=== PATIENT | male | born 1995 | race Caucasian/White ===

== ENCOUNTER 2025-01-21 04:26 | Inpatient (IN) ==
[2025-01-21 05:14] LABS: Appearance Urine Clear (Clear); Bilirubin Urine Negative (Negative); Blood Urine Negative (Negative); Color Urine Yellow; Glucose Urine UA Negative (Negative); Ketones Urine Negative (Negative); Leukocyte Esterase Urine Negative (Negative); Nitrite Urine Negative (Negative); Protein Urine Negative (Negative); Specific Gravity Urine 1.014 (1.000-1.030); Urobilinogen Urine Negative (Negative)
[2025-01-21] MEDS: NICOTINE POLACRILEX 2 MG GUM MT PRN (05:14)
--- NOTE | 2025-01-21 05:19 | Emergency Department Note ---
Impression & Plan Suicidal ideation, Alcohol intoxication, Homicidal ideation, Anxiety, Depression, Laceration of multiple sites ED Provider Note ED Provider Note NAME: GISEL BYRD AGE:29 SEX: Male : 1995 ARRIVES VIA: EMS INFORMANT: Patient ED PROVIDER(s): Maya Nj DO CHIEF COMPLAINT: Mental health evaluation HPI: This is a 29-year-old male who presents to Emergency Department for mental health evaluation. Patient wrote in by EMS after he had contacted the crisis line who then called EMS for him to come in for evaluation. Patient admits to history of anxiety and depression. He states he does take medications as prescribed by his PCP for this although they have been changing them recently, he also speaks with a therapist. He states recently he has felt he was getting out of control and had suicidal ideation a few weeks ago causing him to lock up the weapons he owns as he was concern for his own safety. He states tonight he had a couple beers and was discussing his increased anxiety with his father. He states his father gave him a dose of Ativan and he felt better and then had a few more beers. He states his father left and the patient began to feel unwell with both homicidal ideation briefly when his father was talking about his mother and then suicidal ideation. Patient did self-harm by cutting himself on the hand and bilateral anterior thighs with a knife as a way to stress relief. Patient states he has previously self-harm 2 over the last episode was about a year ago. No prior inpatient mental health treatment. PAST MEDICAL HISTORY:See Below PAST SURGICAL HISTORY:See Below FAMILY HISTORY:See Below SOCIAL HISTORY:See Below HOME MEDICATIONS:See Below ALLERGIES:See Below VITALS:See Below PHYSICAL EXAMINATION: GENERAL: alert, well appearing, well nourished, no distress, non-toxic EYE EXAM: normal conjunctiva, PERRL and EOM's grossly intact OROPHARYNX: no exudate, no erythema, lips, buccal mucosa, and tongue normal and mucous membranes are moist NECK: supple, no nuchal rigidity, no adenopathy, non-tender LUNGS: Clear to auscultation. Normal chest wall mechanics, no w/r/r HEART: no murmurs, S1 normal and S2 normal ABDOMEN: abdomen soft, non-tender, normo-active bowel sounds, no masses, no rebound or guarding. BACK: Back is symmetrical on inspection and there is no deformity, no midline tenderness, no CVA tenderness. SKIN: no rashes, petechiae, orbruising UPPER EXTREMITIES: upper extremities are grossly normal. FROM, nml pulses b/l. LOWER EXTREMITIES: No pitting edema. FROM, nml pulses b/l. NEURO EXAM: Normal sensorium, cranial nerves II-XII grossly intact, normal speech, no facial droop,nogross weakness of arms, no gross weakness of legs. Gross sensation intact. No ataxia. Vital Signs: reviewed and remarkable Differential Diagnosis: mood disorder, suicidal ideation, anxiety, depression, substance abuse, toxidrome, infection, hypoglycemia, electrolyte abnormalities, ICH as well as others were considered. MEDICAL DECISION MAKING: This is a 29-year-old male presents emergency department for mental health evaluation. Patient does admit to SI, HI, anxiety, and depression. Labs and urine collected and sent per protocol, reassuring. Patient seen and evaluated by case management and patient in agreement with plan for inpatient mental health treatment. Patient referred to [facility] and ultimately accepted for further treatment. Consultation(s): 0612: Patient seen and evaluated by yusuf Handley. He was in agreement with plan for inpatient mental health treatment. Patient referred to [facility] ER Treatment Provided: See below 0745: Still awaiting evaluation by [facility] Case signed out to Dr. Kaye pending their evaluation and hopeful acceptance. Diagnostics Interpreted By Me: -Laboratory studies: As stated above and show below. Triage Nursing Note Reviewed Prior/Outside Records Reviewed Past Med/Surg History Problem List (Updated 01/21/25 @ 16:35 by Roxane Loya MD) Eating disorder, unspecified Generalized anxiety disorder with panic attacks MDD (major depressive disorder), recurrent episode, severe Cfxwevq-Xoeeo-Jvohq disease Laceration of multiple sites (Acute) Depression (Acute) Anxiety (Acute) Homicidal ideation (Acute) Alcohol intoxication (Acute) Suicidal ideation (Acute) Social History Smoking Status: Current every day smoker Tobacco Type: E-cigarettes / Vaping Preferred Language: Kiswahili Communication Ability: Effective Mold Checker Required: No Beliefs That Will Affect Care: None Feels Safe at Home: Yes Gender Identity: Male Assistive Devices: Glasses Allergies Allergies Allergy/AdvReac Type Severity Reaction Status Date / Time No Known Allergies Allergy Unverified 01/21/25 09:27 Home Meds Home Medications Medication Instructions Recorded Confirmed aripiprazole 5 mg tablet 5 mg PO DAILY 01/21/25 01/21/25 escitalopram oxalate 10 mg tablet 10 mg PO DAILY 01/21/25 01/21/25 fluoxetine 10 mg capsule 10 mg PO DAILY 01/21/25 01/21/25 Results & Data (ED) Vital Signs Vital Signs - 24 hr 01/21/25 04:18 Temperature 36.4 C L Temperature Source Oral Pulse Rate 77 Respiratory Rate 17 Respiratory Effort / Characteristics Non-Labored Spontaneous Respiratory Depth Normal Respiratory Pattern Regular Blood Pressure 134/77 Blood Pressure Mean 96 Blood Pressure Position Sitting Pulse Oximetry 91 Oxygen Delivery Method Room Air Sepsis Recent Fever Within 48 Hours No Sepsis New/Unexplained Change in Mental Status No Sepsis Action Taken by Nursing No Action Required Laboratory Data 01/21/25 04:50 01/21/25 04:50 Lab Results 01/21/25 01/21/25 01/21/25 Range/Units 04:45 04:50 04:55 WBC 4.29 L (4.8-10.8) K/ul RBC 4.35 L (4.70-6.10) M/uL Hgb 13.3 L (14.0-18.0) g/dl Hct 38.8 L (42.0-52.0) % MCV 89.2 (80.0-100.0) fL MCH 30.6 (25.0-34.0) pg MCHC 34.3 (32.0-36.0) g/dL RDW Std Deviation 37.5 (36.4-46.3) fL RDW Coeff of [place] 11.6 (11.5-14.5) % Plt Count 179 (130-400) K/uL MPV 11.4 (9.4-12.4) fL Immature Gran % (Auto) 0.2 % Neut % (Auto) 65.1 % Lymph % (Auto) 28.2 % [place] % (Auto) 5.8 % Eos % (Auto) 0.2 % Baso % (Auto) 0.5 % Neut # (Auto) 2.79 (1.40-6.50) K/uL Lymph # (Auto) 1.21 (1.20-3.40) K/uL [place] # (Auto) 0.25 (0.11-0.59) K/uL Eos # (Auto) 0.01 (0.00-0.50) K/uL Baso # (Auto) 0.02 (0.00-0.20) K/uL Immature Gran # (Auto) 0.01 (0.01-0.20) K/uL Sodium 140 (136-145) mmol/L Potassium 3.9 (3.5-5.1) mmol/L Chloride 104 (98-107) mmol/L Carbon Dioxide 32 (21-32) mmol/L Anion Gap 4 (3-11) BUN 12 (6-23) mg/dl Creatinine 0.62 (0.6-1.4) mg/dl Est Cr Clr Drug Dosing 195.4 ml/min eGFR 134.35 BUN/Creatinine Ratio 19.4 (10-20) Glucose 102 H (70-99(Fasting)) mg/dl Calcium 9.1 (8.6-10.3) mg/dl Total Bilirubin 0.5 (0.2-1.0) mg/dl AST 54 H (13-39) U/L ALT 79 H (7-52) U/L Alkaline Phosphatase 53 (34-104) U/L Total Protein 6.9 (6.0-8.3) gm/dl Albumin 4.5 (3.4-5.0) gm/dl Globulin 2.4 L (2.5-4.0) gm/dl Albumin/Globulin Ratio 1.9 (0.9-2) TSH 1.579 (0.300-4.500) uIu/ml Urine Color Yellow Urine Appearance Clear (Clear) Urine pH 6.0 (4.5-7.5) Ur Specific [place] 1.014 (1.000-1.030) Urine Protein Negative (Negative) Urine Glucose (UA) Negative (Negative) Urine Ketones Negative (Negative) Urine Blood Negative (Negative) Urine Nitrite Negative (Negative) Urine Bilirubin Negative (Negative) Urine Urobilinogen Negative (Negative) Ur Leukocyte Esterase Negative (Negative) Salicylates < 3.0 L (3.0-30) mg/dl Urine Opiates Screen Neg (Neg) Ur Methadone, Qual Neg (Neg) Urine Fentanyl Screen Neg (Neg) Acetaminophen < 3 L (10-30) ug/ml Urine Barbiturates Neg (Neg) Ur Phencyclidine (PCP) Neg (Neg) U Amphetamin/Meth Scrn Neg (Neg) MDMA (Ecstasy) Screen Neg (Neg) U Benzodiazepines Scrn Neg (Neg) Ur Cocaine Metabolite Neg (Neg) U Marijuana (THC) Screen Pos H (Neg) Ethyl Alcohol mg/dL 100.7 H (<10.0) mg/dl SARS-CoV-2, RNA, NAAT NEGATIVE (NEGATIVE) Administered Medications Aripiprazole (Aripiprazole 5 Mg Tab) 5 mg PO DAILY [facility] Stop: 02/20/25 11:59 Last Admin: 01/21/25 11:49 Dose: 5 mg Documented By: ROB Diclofenac Sodium (Diclofenac Sod 1% Gel 100 Gm Tube) 4 gm EXT BID [facility]; Protocol Stop: 02/20/25 11:44 Last Admin: 01/21/25 21:11 Dose: 4 gm Documented By: Admin: 01/21/25 12:45 Dose: 4 gm Documented By: ROB Escitalopram Oxalate (Escitalopram Oxalate 20 Mg Tab) 20 mg PO DAILY [facility] Stop: 02/20/25 11:59 Last Admin: 01/21/25 11:49 Dose: 20 mg Documented By: ROB Gabapentin (Gabapentin 100 Mg Cap) 100 mg PO TID [facility] Stop: 02/20/25 13:59 Last Admin: 01/21/25 21:10 Dose: 100 mg Documented By: Admin: 01/21/25 13:34 Dose: 100 mg Documented By: ROB Hydroxyzine HCl (Hydroxyzine Hcl 25 Mg Tab) 50 mg PO HSZ PRN PRN Reason: Insomnia Stop: 02/20/25 09:02 Last Admin: 01/21/25 22:32 Dose: 50 mg Documented By: RB Multivitamins/Minerals (Cerovite Adv Formula Tab) 1 tab PO QAM [facility] Stop: 02/20/25 11:44 Last Admin: 01/21/25 12:43 Dose: 1 tab Documented By: ROB Nicotine (Nicotine 21 Mg/24 Hr Tdsy) 1 patch TD QAM [facility] Stop: 02/20/25 09:14 Last Admin: 01/21/25 11:01 Dose: 1 patch Documented By: ROB Discontinued Medications Aripiprazole (Aripiprazole 5 Mg Tab) 5 mg PO DAILY [facility] Stop: 02/20/25 11:14 Last Admin: 01/21/25 15:37 Dose: Not Given Documented By: RB Lidocaine (Lidocaine 5% 1 Patch) 1 patch TD NOW STA Stop: 01/21/25 11:41 Last Admin: 01/21/25 12:44 Dose: 1 patch Documented By: VDS Nicotine Polacrilex (Nicotine Polacrilex 2 Mg Gum) 1 piece MT Q2H PRN PRN Reason: Agitation Stop: 02/20/25 05:08 Last Admin: 01/21/25 05:14 Dose: 1 piece Documented By: KMS Discharge Plan Visit Data Chief Complaint: Mental Health Evaluation Stated Complaint: [facility] ED Provider: Maya Nj Discharge Problem: Suicidal ideation, Alcohol intoxication, Homicidal ideation, Anxiety, Depression, Laceration of multiple sites Patient Disposition: Admitted As Inpatient Discharge Instructions Interventions: ED Discharge Assessment Last Done: 01/21/25 08:49
[2025-01-21 05:30] LABS: Albumin Globulin Ratio 1.9 (0.9-2); Albumin Level 4.5 gm/dl (3.4-5.0); BUN Creatinine Ratio 19.4 (10-20); Bilirubin,Total 0.5 mg/dl (0.2-1.0); Calcium 9.1 mg/dl (8.6-10.3); Creatinine Clr Calc Pharmacy 195.4 ml/min; Globulin 2.4 gm/dl (2.5-4.0); Potassium 3.9 mmol/L (3.5-5.1); Total Protein 6.9 gm/dl (6.0-8.3)
[2025-01-21 05:42] LABS: Acetaminophen < 3 ug/ml (10-30); Salicylate < 3.0 mg/dl (3.0-30)
[2025-01-21 05:42] LABS: Amphetamines+Metham, Urine Neg (Neg); Barbiturates, Urine Neg (Neg); Benzodiazepine, Urine Neg (Neg); Cocaine, Urine Neg (Neg); Fentanyl, Urine Neg (Neg); MDMA (Ecstacy), Urine Neg (Neg); Marijuana, Urine Pos (Neg); Methadone, Urine Neg (Neg); Opiate, Urine Neg (Neg); Phencyclidine, Urine Neg (Neg)
[2025-01-21 05:44] LABS: Thyroid Stimulating Hormone 1.579 uIu/ml (0.300-4.500)
[2025-01-21 06:18] LABS: Basophils # (auto) 0.02 K/uL (0.00-0.20); Basophils % (auto) 0.5 %; Eosinophils # (auto) 0.01 K/uL (0.00-0.50); Eosinophils % (auto) 0.2 %; Hematocrit (blood only) 38.8 % (42.0-52.0); Hemoglobin 13.3 g/dl (14.0-18.0); Immature Granulocytes # (auto) 0.01 K/uL (0.01-0.20); Immature Granulocytes % (auto) 0.2 %; Lymphocytes # (auto) 1.21 K/uL (1.20-3.40); Lymphocytes % (auto) 28.2 %; Mean Corpuscular Hemoglobin 30.6 pg (25.0-34.0); Mean Corpuscular Hgb Conc 34.3 g/dL (32.0-36.0); Mean Corpuscular Volume 89.2 fL (80.0-100.0); Mean Platelet Volume 11.4 fL (9.4-12.4); Monocytes # (auto) 0.25 K/uL (0.11-0.59); Monocytes % (auto) 5.8 %; Neutrophils # (auto) 2.79 K/uL (1.40-6.50); Neutrophils % (auto) 65.1 %; Platelet Count 179 K/uL (130-400); RDW Coefficient of Variation 11.6 % (11.5-14.5); RDW Standard Deviation 37.5 fL (36.4-46.3); Red Blood Count 4.35 M/uL (4.70-6.10); White Blood Count 4.29 K/ul (4.8-10.8)
--- NOTE | 2025-01-21 07:42 | Emergency Department Note ---
ED Visit Note The patient was taken in signout from Dr. Nj at the change of shift. Please see that note for details. The patient was pending bedsearch for inpatient psychiatric treatment. In brief the patient is a 29-year-old gentleman with a pmhx of anxiety/depression who presented to the Emergency Department with SI and HI in setting of having intermittent suicidal ideation over the past couple weeks. Patient was medically cleared. Patient did agree with plan for voluntary inpatient treatment at this time. Patient was accepted to [facility] .
[2025-01-21] MEDS ORDERED: NICOTINE POLACRILEX 2 MG GUM MT PRN (09:01)
[2025-01-21] MEDS ORDERED: hydrOXYzine HCl 25 MG TAB PO PRN (09:03)
[2025-01-21] MEDS ORDERED: ALUMINUM/MAGNESIUM SUSP 30 ML UDC PO PRN (09:03)
[2025-01-21] MEDS ORDERED: MAGNESIUM HYDROXIDE SUSP 30 ML UDC PO PRN (09:03)
[2025-01-21] MEDS ORDERED: ACETAMINOPHEN 325 MG TAB PO PRN (09:03)
[2025-01-21] MEDS ORDERED: BISMUTH SUBSALICYLATE 262 MG CHEW PO PRN (09:03)
[2025-01-21] MEDS ORDERED: SODIUM CHLORIDE 0.65% NA SOLN 45 ML (OCEAN) PRN (09:03)
[2025-01-21] MEDS: NICOTINE 21 MG/24 HR TDSY TD SCH (11:01)
--- NOTE | 2025-01-21 11:28 | History & Physical ---
Date of Service January 21, 2025 Impression / Recommendations Patricia BYRD is a 29-year-old man who currently lives in [place] alone, has a history of anxiety, depression, Ymputsq-Rmwvz-Bpozr, and was admitted on 01/21/25 08:32 on a 201 voluntary commitment for SI and HI. Diagnostically consistent with major depressive disorder with suicidal ideation, generalized anxiety disorder with panic attacks, Gtwyabj-Dbtmh-Vkxpc disease, and unspecified eating disorder, self-harm behaviors and possible borderline personality disorder. Nutritional deficiencies on the differential as these can contribute to anxiety symptoms, particularly given long-term vegan diet and history of binging, no evidence for thiamine deficiency or Wernicke's encephalopathy. Discussed medication treatment options in detail. Discussed risks, benefits and alternatives. He is currently taking Lexapro which he is agreeable to increasing, continuing Abilify, and using Vistaril as needed for anxiety. Starting gabapentin for dual purpose of anxiety management and neuropathic pain. Reviewed side effects including but not limited to: GI effects and headache with Lexapro; movement (TD, NMS), cardiac (QTc prolongation), and metabolic (stroke, insulin resistance) and necessity for fasting lipid and glucose labwork and AIMS done with score of 0 with abilify; sedation with Vistaril; dizziness and somnolence with gabapentin. Will require monitoring of cholesterol, glucose, vitamin levels per ordered labs. Safety plan includes inpatient psychiatric hospitalization for stabilization and medication adjustment. Firearms to be secured with patient's mother. Symptom questionnaires to be administered for baseline assessment. Additional interventions include lidocaine patch for back pain management, stress reduction techniques, and bagel maker consultation for vegan diet management given concurrent concern for eating disorder role and restriction. MNPR for now given recent statements of HI Overall I spent a total of 75 minutes for this admission including review of chart records, review of labwork, direct evaluation of the patient, counseling the patient, ordering medication, risk assessment, discussion with the psychiatric liason RN and documentation in the electronic health record. (1) Suicidal ideation: (2) MDD (major depressive disorder), recurrent episode, severe: (3) Generalized anxiety disorder with panic attacks: (4) Laceration of multiple sites: (5) Homicidal ideation: (6) Udqwznx-Gexdb-Dodjp disease: (7) Alcohol intoxication: (8) Eating disorder, unspecified: Plan 01/21/2025: The patient was admitted to the [facility] ([facility] inpatient mental health unit) on q15 min checks (behavioral with suicide precautions) for safety. The patient will participate in group, recreational, and milieu therapies and will be offered additional individual and family sessions as clinically appropriate. -continue abilify 5mg HS -increase lexapro to 20mg daily -fasting lipid panel, HBA1c, Vit D and Vit B12 for tomorrow AM -start gabapentin 100mg TID -start multivitamin -bagel maker consult -lidocaine patch -Voltaren gel -Advil -PHQ-9, ALEJANDRO-7, Desmond BPD, MARKEL questionnaire Inventory Assets Strengths: supportive relationships, willing to get treatment Needs: safety and stabilization, medication adjustment, additional coping skills, increased outpatient services Suicide Risk Level Suicide Risk Level: High-Moderate (q15 min suicide checks) (worsened depression, anxiety with panic attacks and SI prior to admission but feels safe in the hospital and feels able to ask for support) Risk Factors Assessment Male: Yes : Yes Do You Have Access To A Gun?: Yes Health Problems: Yes Mental Health Diagnoses: Yes Substance Use Disorders: No Previous Attempt: No Family History of Suicide: No Previous Psychiatric Hospitalization: No Hopelessness: Yes Protective Factors Assessment Employed: No Stable Relationships: Yes Supportive Family: Yes (mother) Good Rapport with Provider: Yes Psychiatric History Identifying Data GISEL BYRD is a 29-year-old man who currently lives in [facility], has a history of anxiety, depression, Unpkzrs-Deemu-Otwht, and was admitted on 01/21/25 08:32 on a 201 voluntary commitment for SI and HI. Chief Complaint "Almost everything gives me a panic attack lately". History of Present Illness He presents for psychiatric admission for worsening depression, constant panic attacks and SI with possible plans of shooting himself which has been worsening over the last month. He describes that his symptoms seemed to worsen after watching a livestream about something discussing the possibility of a future nuclear war regarding [place] conflict and seeing information about wars all over the world. He notes since then it's felt like "the world's impending doom". He reports a significant decline in his mental health over the past month. About a week ago he called the national crisis line for increased thoughts of suicide and decided to lock up his guns "to keep myself from acting on it". He describes feeling "really worked up" last evening and was self-harming by cutting his hand and legs with a knife and "starting to think about picking the lock" on his gun cabinet. He endorses depressive symptoms including anhedonia (typically enjoys collecting transformers), decreased motivation, self-guilt, helplessness, hopelessness, decreased energy, increased appetite, and increased sleep with daytime naps. SI has been occurring throughout his life but have worsened recently. He also endorses symptoms of anxiety including generalized worries, shakiness, easily overwhelmed and panic attacks with heart racing and "just scared". He reports at least one panic attack per day which seems to last for a few minutes to 20-30minutes. He notes "I just can't seem to get stuff out of my head sometimes". Yesterday evening he developed homicidal thoughts towards his dad. He notes he and his dad were drinking and "drinking makes my dad mean" and his dad was accusing him of trying to take advantage of others and then was threatening his mom. He denies any HI currently noting "I regret saying it and I really believe I would never do that". However, he does feel he would defend his mother if his father ever tried to be aggressive toward her. Endorses chronic pain related to Mzjgkam-Mzuxw-Wevzv disease, particularly in feet and ankles, with recent onset of back pain. Reports difficulty controlling tremors in hands and arms, which has worsened lately. Endorses visual hallucinations, including seeing things in peripheral vision and recent incident of seeing someone waving from bed now and then but this is rare, not associated with going to sleep or waking up. He is currently prescribed psychiatric medications of abilify 5mg HS (started last week due to difficulty sleeping and SI), Lexapro 10mg daily (on this for two weeks, started for anxiety/depression, no benefits so far, notices side effect of "this weird pressure in my head") and uses Vistaril prn for anxiety which sometimes helps. Psychiatric ROS notable for no current nor history of symptoms of trista, psychosis (except brief visual hallucinations rarely as described above), PTSD, nor OCD. History of self-harm via cutting and history of eating disorder of inducing vomiting a few ago to try to lose weight. Has also been Vegan for a few years to try to lose weight. Past Psychiatric History Current Psychiatric Diagnosis: Depression, Anxiety Outpatient Services: just started therapy [facility] had one session so far Previous Psych Admissions: none Do You Have Access To A Gun?: Yes History of Previous Suicide Attempt: No Past Medication Trials: -fluoxetine-recently stopped (was on this for at least 1-2 years, for awhile it seemed to help but then it wasn't working, tried dose increase but then side effects of headaches, nausea, blurry vision) Past Head Trauma/Neuro History History of Concussion/Seizure: No Allergies Allergy/AdvReac Type Severity Reaction Status Date / Time No Known Allergies Allergy Unverified 01/21/25 09:27 Home Medications Medication Instructions Recorded Confirmed Type aripiprazole 5 mg tablet 5 mg PO DAILY 01/21/25 01/21/25 History escitalopram oxalate 10 mg tablet 10 mg PO DAILY 01/21/25 01/21/25 History fluoxetine 10 mg capsule 10 mg PO DAILY 01/21/25 01/21/25 History Family History Family History of: Depression, Anxiety and Alcoholism/Drug Abuse Family Mental Health History Comment: Mother and father with alcoholism, undiagnosed depression/anxiety Alcohol History Hx of Alcohol Use Over the Past 12 Months: Yes (1-2 times per month) AUDIT Total Score: 4 He reports in the past he used to drink a lot more but now he only drinks socially usually 2-3 beer once or twice a month Smoking Use Have You Smoked or Used Tobacco Products in the Last 30 Days: Yes tobacco type: e-cigarettes Smoking Status: Current every day smoker Substance History Hx of Prescription Med Misuse Over the Past 12 Months: Yes (Took 5mg Ativan not prescribed to him) Hx of Over the Counter Med Misuse Over the Past 12 Months: No Hx of Inhalent Misuse Over the Past 12 Months: No Hx of Organic Substance Use Over the Past 12 Months: Yes (Marijuana frequently, last used yesterday) Hx of Illegal Substances/Street Drug Use Over Past 12 Months: No Problems as a Result of Past Substance Use: None Identified Uses cannabis, had been daily but recently he's been trying "not to do it because it freaks me out, have a panic attack or something when I do it". Personal History Living Arrangements: Apartment Childhood: Parents are . He has a younger sister. Highest Grade Completed: High School Graduate Employment Status: Disabled Marital Status: Single Number Of Children: n/a Beliefs That Will Affect Care: None Current Legal Problems: No Hx Legal Problems: No Hx Traumatic Life Events: No Patient History Social History Smoking Status: Current every day smoker Tobacco Type: E-cigarettes / Vaping Preferred Language: French Communication Ability: Effective Law Office Manager Required: No Beliefs That Will Affect Care: None Feels Safe at Home: Yes Gender Identity: Male Assistive Devices: Glasses Review of Systems Review of Systems: All systems reviewed & are unremarkable except as noted in HPI & below (back pain and foot pain) Physical Exam Psychiatric: Orientation: alert and oriented x 3 Apperance: appropriately dressed and appropriately groomed Eye Contact: good eye contact Motor Behavior: no abnormal motor movements Speech: normal rate/rhythm/volume of speech Affect: + depressed affect and + anxious affect Mood: + depressed mood and + anxious mood Thought Process: goal directed thought process Thought Content: reality based without delusions Suicidal Thoughts: denies suicidal intent; + reports suicidal thoughts and + reports suicidal plan (none for hospital, outside to use gun) Homicidal Thoughts: denies homicidal thoughts (but present toward his father last evening) Hallucinations: no auditory hallucinations and no visual hallucinations Cognition: recent memory grossly intact, remote memory grossly intact, attention grossly intact and language grossly intact Estimated Intelligence: consistent with education level Insight: + fair insight Judgment: + fair judgement Vital Signs (Past 24 Hours): Last Vital Signs Temp 36.7 C 01/21/25 10:04 Pulse 73 01/21/25 10:04 Resp 16 01/21/25 10:04 BP 127/76 01/21/25 10:04 Pulse Ox 99 01/21/25 10:04 O2 Del Method Room Air 01/21/25 10:04 Exam Statement: A physical exam was performed in the ED by Dr. Nj for the purposes of medical clearance. I accept that physical as correct and adequate for the purposes of the inpatient physical exam. Results & Data ([facility] [place]) Laboratory Results Laboratory Results - last 24 hr 01/21/25 01/21/25 01/21/25 04:45 04:50 04:55 WBC 4.29 L RBC 4.35 L Hgb 13.3 L Hct 38.8 L MCV 89.2 MCH 30.6 MCHC 34.3 RDW Std Deviation 37.5 RDW Coeff of Davonte 11.6 Plt Count 179 MPV 11.4 Immature Gran % (Auto) 0.2 Neut % (Auto) 65.1 Lymph % (Auto) 28.2 Mcculloch % (Auto) 5.8 Eos % (Auto) 0.2 Baso % (Auto) 0.5 Neut # (Auto) 2.79 Lymph # (Auto) 1.21 Mcculloch # (Auto) 0.25 Eos # (Auto) 0.01 Baso # (Auto) 0.02 Immature Gran # (Auto) 0.01 Sodium 140 Potassium 3.9 Chloride 104 Carbon Dioxide 32 Anion Gap 4 BUN 12 Creatinine 0.62 Est Cr Clr Drug Dosing 195.4 eGFR 134.35 BUN/Creatinine Ratio 19.4 Glucose 102 H Calcium 9.1 Total Bilirubin 0.5 AST 54 H ALT 79 H Alkaline Phosphatase 53 Total Protein 6.9 Albumin 4.5 Globulin 2.4 L Albumin/Globulin Ratio 1.9 TSH 1.579 Urine Color Yellow Urine Appearance Clear Urine pH 6.0 Ur Specific [place] 1.014 Urine Protein Negative Urine Glucose (UA) Negative Urine Ketones Negative Urine Blood Negative Urine Nitrite Negative Urine Bilirubin Negative Urine Urobilinogen Negative Ur Leukocyte Esterase Negative Salicylates < 3.0 L Urine Opiates Screen Neg Ur Methadone, Qual Neg Urine Fentanyl Screen Neg Acetaminophen < 3 L Urine Barbiturates Neg Ur Phencyclidine (PCP) Neg U Amphetamin/Meth Scrn Neg MDMA (Ecstasy) Screen Neg U Benzodiazepines Scrn Neg Ur Cocaine Metabolite Neg U Marijuana (THC) Screen Pos H U Marijuana THC Carboxy Pending Drug Screen Comment Pending Ethyl Alcohol mg/dL 100.7 H SARS-CoV-2, RNA, NAAT NEGATIVE Current Inpatient Medications Current Inpatient Medications: Current Inpatient Medications Acetaminophen (Acetaminophen 325 Mg Tab) 650 mg PO Q4H PRN PRN Reason: Headache or Minor Fever Stop: 02/20/25 09:02 Al Hydrox/Mg Hydrox/Simethicone (Aluminum/Magnesium Susp 30 Ml Udc) 30 ml PO Q4H PRN PRN Reason: GI Upset Stop: 02/20/25 09:02 Bismuth Subsalicylate (Bismuth Subsalicylate 262 Mg Chew) 2 tab PO Q30M PRN PRN Reason: Loose Stool/Diarrhea Stop: 02/20/25 09:02 Hydroxyzine HCl (Hydroxyzine Hcl 25 Mg Tab) 50 mg PO HSZ PRN PRN Reason: Insomnia Stop: 02/20/25 09:02 Hydroxyzine HCl (Hydroxyzine Hcl 25 Mg Tab) 25 mg PO Q4H PRN PRN Reason: Anxiety Stop: 02/20/25 09:02 Magnesium Hydroxide (Magnesium Hydroxide Susp 30 Ml Udc) 30 ml PO DAILY PRN PRN Reason: Constipation Stop: 02/20/25 09:02 Miscellaneous (Remove Nicoderm Patch) 1 each N/A DAILY@0859 [facility] Stop: 02/21/25 08:58 Nicotine (Nicotine 21 Mg/24 Hr Tdsy) 1 patch TD QAM [facility] Stop: 02/20/25 09:14 Last Admin: 01/21/25 11:01 Dose: 1 patch Nicotine Polacrilex (Nicotine Polacrilex 2 Mg Gum) 1 piece MT PRN PRN PRN Reason: Nicotine Withdrawal Symptoms Stop: 02/20/25 09:00 Sodium Chloride (Sodium Chloride 0.65% Na Soln 45 Ml ([place])) 1 - 2 sprays NA PRN PRN PRN Reason: Nasal Dryness/Congestion Stop: 02/20/25 09:02
[2025-01-21] MEDS ORDERED: IBUPROFEN 200 MG TAB PO PRN (11:40)
[2025-01-21] MEDS: ARIPiprazole 5 MG TAB PO SCH ×2 (11:49→15:37)
[2025-01-21] MEDS: ESCITALOPRAM OXALATE 20 MG TAB PO SCH (11:49)
[2025-01-21] MEDS: CEROVITE ADV FORMULA TAB PO SCH (12:43)
[2025-01-21] MEDS: LIDOCAINE 5% 1 PATCH TD STA (12:44)
[2025-01-21] MEDS: DICLOFENAC SOD 1% GEL 100 GM TUBE EXT SCH (12:45)
[2025-01-21] MEDS: GABAPENTIN 100 MG CAP PO SCH (13:34)
[2025-01-21] MEDS: hydrOXYzine HCl 25 MG TAB PO PRN (22:32)
[2025-01-22 08:48] LABS: Chol HDL Ratio 2.2 (0-5)
--- NOTE | 2025-01-22 09:00 | Psychiatric Progress Note ---
Date of Service January 22, 2025 Impression / Recommendations Patricia BYRD is a 29-year-old man who currently lives in [place] alone, has a history of anxiety, depression, Irwuvxv-Fhgmu-Nfbkd, and was admitted on 01/21/25 08:32 on a 201 voluntary commitment for SI and HI. Diagnostically consistent with major depressive disorder with suicidal ideation, generalized anxiety disorder with panic attacks, Btscirn-Uncui-Npsoh disease, and unspecified eating disorder, self-harm behaviors and possible borderline personality disorder. Nutritional deficiencies on the differential as these can contribute to anxiety symptoms, particularly given long-term vegan diet and history of binging, no evidence for thiamine deficiency or Wernicke's encephalopathy. A: : Mood improving slightly today with lessening of suicidal ideation. Tolerating medication changes so far, we will continue to titrate gabapentin to target pain symptoms and anxiety. Labwork reviewed and stable for ongoing use of Abilify, normal HbA1c and fasting lipid panel. Added vitamin D supplementation due to low vitamin D. Symptom questionnaire is reviewed and notable for ALEJANDRO-7 score of 20, PHQ-9 score of 22, positive Richey borderline personality disorder screening and a score of 4. Discussed with him that one of the best treatments for symptoms associated with borderline personality disorder is structured therapy specifically DBT. No longer having any HI, will discontinue MNPR. Overall, I spent a total of 35 minutes on this case including meeting with the patient, reviewing the chart, nursing report, multidisciplinary team meeting, orders, and documentation. (1) Suicidal ideation: (2) MDD (major depressive disorder), recurrent episode, severe: (3) Generalized anxiety disorder with panic attacks: (4) Laceration of multiple sites: (5) Homicidal ideation: (6) Pewxzle-Mprzg-Lclsb disease: (7) Alcohol intoxication: (8) Eating disorder, unspecified: Plan 01/22/2025: -Increase gabapentin to 300mg TID 01/21/2025: The patient was admitted to the [facility] ([facility] mental health unit) on q15 min checks (behavioral with suicide precautions) for safety. The patient will participate in group, recreational, and milieu therapies and will be offered additional individual and family sessions as clinically appropriate. -continue abilify 5mg HS -increase lexapro to 20mg daily -fasting lipid panel, HBA1c, Vit D and Vit B12 for tomorrow AM -start gabapentin 100mg TID -start multivitamin -cra consult -lidocaine patch -Voltaren gel -Advil -PHQ-9, ALEJANDRO-7, Desmond BPD, MARKEL questionnaire Inventory Assets Strengths: supportive relationships, willing to get treatment Needs: safety and stabilization, medication adjustment, additional coping skills, increased outpatient services Suicide Risk Level Suicide Risk Level: Moderate (q15 min suicide checks) (worsened depression, anxiety with panic attacks and SI prior to admission but mood improving, feels safe in the hospital and feels able to ask for support) Risk Factors Assessment Male: Yes : Yes Do You Have Access To A Gun?: Yes Health Problems: Yes Mental Health Diagnoses: Yes Substance Use Disorders: No Previous Attempt: No Family History of Suicide: No Previous Psychiatric Hospitalization: No Hopelessness: Yes Protective Factors Assessment Employed: No Stable Relationships: Yes Supportive Family: Yes (mother) Good Rapport with Provider: Yes Interval History Identifying Information GISEL BYRD is a 29-year-old man who currently lives in [place] alone, has a history of anxiety, depression, Dxmhvyx-Zqtby-Uuuxn, and was admitted on 01/21/25 08:32 on a 201 voluntary commitment for SI and HI. Chief Complaint "better less nervous". Review of Systems Sleep Information Total Hours of Sleep: 6.5 Meal Information Percent Meal Consumed - Breakfast: 100 Percent Meal Consumed - Lunch: 75 Percent Meal Consumed - Dinner: 75 Subjective Subjective Patient was seen & assessed and interval progress reviewed with treatment team. Attending some groups. Had a good visit with his uncle. Showered last evening. Rated his mood "anxious" last evening. Today he reports his mood is "better less nervous". He found that the Voltaren cream helped some with his ankle and foot pain. He is also finding the lidocaine patch helpful for his low back pain. He denies any thoughts of suicide today. He continues to have significant anxiety has not noticed any side effects but also not much benefit from gabapentin he is interested in increasing the dose. Reviewed his lab work and symptom questionnaires. Physical Exam Psychiatric Orientation: alert and oriented x 3 Apperance: appropriately dressed and appropriately groomed Eye Contact: good eye contact Motor Behavior: no abnormal motor movements Speech: normal rate/rhythm/volume of speech Affect: + depressed affect and + anxious affect Mood: + depressed mood and + anxious mood Thought Process: goal directed thought process Thought Content: reality based without delusions Suicidal Thoughts: denies suicidal intent; + reports suicidal thoughts (lessening today) and + reports suicidal plan (none for hospital, outside to use gun) Homicidal Thoughts: denies homicidal thoughts Hallucinations: no auditory hallucinations and no visual hallucinations Cognition: recent memory grossly intact, remote memory grossly intact, attention grossly intact and language grossly intact Estimated Intelligence: consistent with education level Insight: + fair insight Judgment: + fair judgement Vital Signs (Past 24 Hours) Last Vital Signs Temp 36.6 C 01/22/25 06:26 Pulse 73 01/22/25 06:27 Resp 16 01/22/25 06:26 BP 112/70 01/22/25 06:27 Pulse Ox 99 01/21/25 10:04 O2 Del Method Room Air 01/21/25 10:04 Results & Data ([facility]) Laboratory Results Laboratory Results - last 24 hr 01/22/25 08:11 Estimat Average Glucose Pending Hemoglobin A1c Pending Triglycerides 83 Cholesterol 125 LDL Cholesterol, Calc 50 VLDL Cholesterol, Calc 17 HDL Cholesterol 58 Cholesterol/HDL Ratio 2.2 Vitamin B12 Pending 25-OH Vitamin D Total Pending Current Inpatient Medications Current Inpatient Medications: Current Inpatient Medications Acetaminophen (Acetaminophen 325 Mg Tab) 650 mg PO Q4H PRN PRN Reason: Headache or Minor Fever Stop: 02/20/25 09:02 Al Hydrox/Mg Hydrox/Simethicone (Aluminum/Magnesium Susp 30 Ml Udc) 30 ml PO Q4 H PRN PRN Reason: GI Upset Stop: 02/20/25 09:02 Aripiprazole (Aripiprazole 5 Mg Tab) 5 mg PO DAILY [facility] Stop: 02/20/25 11:59 Last Admin: 01/22/25 08:34 Dose: 5 mg Bismuth Subsalicylate (Bismuth Subsalicylate 262 Mg Chew) 2 tab PO Q30M PRN PRN Reason: Loose Stool/Diarrhea Stop: 02/20/25 09:02 Diclofenac Sodium (Diclofenac Sod 1% Gel 100 Gm Tube) 4 gm EXT BID [facility]; Protocol Stop: 02/20/25 11:44 Last Admin: 01/22/25 08:35 Dose: 4 gm Escitalopram Oxalate (Escitalopram Oxalate 20 Mg Tab) 20 mg PO DAILY [facility] Stop: 02/20/25 11:59 Last Admin: 01/22/25 08:34 Dose: 20 mg Gabapentin (Gabapentin 100 Mg Cap) 100 mg PO TID [facility] Stop: 02/20/25 13:59 Last Admin: 01/22/25 08:34 Dose: 100 mg Hydroxyzine HCl (Hydroxyzine Hcl 25 Mg Tab) 50 mg PO HSZ PRN PRN Reason: Insomnia Stop: 02/20/25 09:02 Last Admin: 01/21/25 22:32 Dose: 50 mg Hydroxyzine HCl (Hydroxyzine Hcl 25 Mg Tab) 25 mg PO Q4H PRN PRN Reason: Anxiety Stop: 02/20/25 09:02 Ibuprofen (Ibuprofen 200 Mg Tab) 400 mg PO Q4H PRN PRN Reason: Joint pain Stop: 02/20/25 11:39 Magnesium Hydroxide (Magnesium Hydroxide Susp 30 Ml Udc) 30 ml PO DAILY PRN PRN Reason: Constipation Stop: 02/20/25 09:02 Miscellaneous (Remove Nicoderm Patch) 1 each N/A DAILY@0859 [facility] Stop: 02/21/25 08:58 Last Admin: 01/22/25 08:40 Dose: 1 each Multivitamins/Minerals (Cerovite Adv Formula Tab) 1 tab PO QAM [facility] Stop: 02/20/25 11:44 Last Admin: 01/22/25 08:34 Dose: 1 tab Nicotine (Nicotine 21 Mg/24 Hr Tdsy) 1 patch TD QAM [facility] Stop: 02/20/25 09:14 Last Admin: 01/22/25 08:40 Dose: 1 patch Nicotine Polacrilex (Nicotine Polacrilex 2 Mg Gum) 1 piece MT PRN PRN PRN Reason: Nicotine Withdrawal Symptoms Stop: 02/20/25 09:00 Sodium Chloride (Sodium Chloride 0.65% Na Soln 45 Ml ([place])) 1 - 2 sprays NA PRN PRN PRN Reason: Nasal Dryness/Congestion Stop: 02/20/25 09:02 Mental Health & Subst Abuse Tx Therapist Name of Therapist: [facility] [employer] Date of Therapist Appointment: 01/27/2025 Science Analyst Name of Science Analyst: None Post Discharge Appointments Primary Care Physician Name Of Family Doctor/PCP: Dr. Patric York - [facility] PCP
[2025-01-22 09:19] LABS: Estimated Average Glucose 97 mg/dl
[2025-01-22] MEDS: CHOLECALCIFEROL 125 MCG (5,000 UNITS) TAB PO SCH (11:00)
[2025-01-22] MEDS: LIDOCAINE 5% 1 PATCH TD SCH (11:05)
[2025-01-22] MEDS: GABAPENTIN 300 MG CAP PO SCH (13:36)
--- NOTE | 2025-01-23 15:53 | Psychiatric Progress Note ---
Date of Service January 23, 2025 Impression / Recommendations Patricia BYRD is a 29-year-old man who currently lives in [place] alone, has a history of anxiety, depression, Epkvlan-Twtzp-Cmrak, and was admitted on 01/21/25 08:32 on a 201 voluntary commitment for SI and HI. Diagnostically consistent with major depressive disorder with suicidal ideation, generalized anxiety disorder with panic attacks, Rnfrbxy-Inzfr-Egzqh disease, and unspecified eating disorder, self-harm behaviors and possible borderline personality disorder. Nutritional deficiencies on the differential as these can contribute to anxiety symptoms, particularly given long-term vegan diet and history of binging, no evidence for thiamine deficiency or Wernicke's encephalopathy. A: : Patient presenting improved mood, sleep and decrease intensity and frequency of panic symptoms. Has been tolerating escitalopram and aripiprazole well and we will plan to continue. Patient was educated about sleep hygiene. Overall, I spent a total of 40 minutes on this case including meeting with the patient, reviewing the chart, nursing report, multidisciplinary team meeting, orders, and documentation. (1) Suicidal ideation: (2) MDD (major depressive disorder), recurrent episode, severe: (3) Generalized anxiety disorder with panic attacks: (4) Laceration of multiple sites: (5) Homicidal ideation: (6) Jqtjptq-Izrti-Fpaqs disease: (7) Alcohol intoxication: (8) Eating disorder, unspecified: (9) Cluster B personality disorder: Plan 01/23/2025: Continue medications and treatment plan 01/22/2025: -Increase gabapentin to 300mg TID 01/21/2025: The patient was admitted to the [facility] ([facility] mental health unit) on q15 min checks (behavioral with suicide precautions) for safety. The patient will participate in group, recreational, and milieu therapies and will be offered additional individual and family sessions as clinically appropriate. -continue abilify 5mg HS -increase lexapro to 20mg daily -fasting lipid panel, HBA1c, Vit D and Vit B12 for tomorrow AM -start gabapentin 100mg TID -start multivitamin -shopper insights manager consult -lidocaine patch -Voltaren gel -Advil -PHQ-9, ALEJANDRO-7, Desmond BPD, MARKEL questionnaire Inventory Assets Strengths: supportive relationships, willing to get treatment Needs: safety and stabilization, medication adjustment, additional coping skills, increased outpatient services Suicide Risk Level Suicide Risk Level: Moderate (q15 min suicide checks) (worsened depression, anxiety with panic attacks and SI prior to admission but mood improving, feels safe in the hospital and feels able to ask for support) Risk Factors Assessment Male: Yes : Yes Do You Have Access To A Gun?: Yes Health Problems: Yes Mental Health Diagnoses: Yes Substance Use Disorders: No Previous Attempt: No Family History of Suicide: No Previous Psychiatric Hospitalization: No Hopelessness: Yes Protective Factors Assessment Employed: No Stable Relationships: Yes Supportive Family: Yes (mother) Good Rapport with Provider: Yes Interval History Identifying Information GISEL BYRD is a 29-year-old man who currently lives in [place] alone, has a history of anxiety, depression, Sztnekc-Fdkyt-Cxwvz, and was admitted on 01/21/25 08:32 on a 201 voluntary commitment for SI and HI. Chief Complaint "Suicidal thoughts" Review of Systems Sleep Information Total Hours of Sleep: 6.5 Meal Information Percent Meal Consumed - Breakfast: 100 Percent Meal Consumed - Lunch: 100 Percent Meal Consumed - Dinner: 100 Subjective Subjective Patient was seen & assessed and interval progress reviewed with treatment team nursing and social work Patient reports being an argument with father. Says that the father was threatening to kill his mother and other loved ones. He wanted to protect his loved ones and reports that why he made the homicidal threat. Reports both SI and HI resolved quickly. Reports recent loss of interest, lower energy, lack of motivation, worsened mood, trouble falling asleep,. Complains of increased panic attacks sometimes that happen unknowingly or due to increased pain. Overnight slept well with no awakenings. Reports being on Prozac 10 mg for 3 to 4 years and initially effective. Denies SI. Physical Exam Mental Examination Appearance: Well Groomed Eye Contact: Maintains Eye Contact Motor Behavior: Unsteady and Tremulous Speech: Normal Mood: Calm Affect: Nervous Thought Process: Intact Hallucinations: None Insight: Poor Judgement: Fair Vital Signs (Past 24 Hours) Last Vital Signs Temp 36.4 C L 01/23/25 06:30 Pulse 75 01/23/25 06:31 Resp 16 01/23/25 06:30 BP 106/66 01/23/25 06:31 Pulse Ox 99 01/21/25 10:04 O2 Del Method Room Air 01/21/25 10:04 Results & Data ([facility]) Current Inpatient Medications Current Inpatient Medications: Current Inpatient Medications Acetaminophen (Acetaminophen 325 Mg Tab) 650 mg PO Q4H PRN PRN Reason: Headache or Minor Fever Stop: 02/20/25 09:02 Al Hydrox/Mg Hydrox/Simethicone (Aluminum/Magnesium Susp 30 Ml Udc) 30 ml PO Q4H PRN PRN Reason: GI Upset Stop: 02/20/25 09:02 Aripiprazole (Aripiprazole 5 Mg Tab) 5 mg PO DAILY [facility] Stop: 02/20/25 11:59 Last Admin: 01/23/25 08:43 Dose: 5 mg Bismuth Subsalicylate (Bismuth Subsalicylate 262 Mg Chew) 2 tab PO Q30M PRN PRN Reason: Loose Stool/Diarrhea Stop: 02/20/25 09:02 Diclofenac Sodium (Diclofenac Sod 1% Gel 100 Gm Tube) 4 gm EXT BID KALA; Protocol Stop: 02/20/25 11:44 Last Admin: 01/23/25 10:18 Dose: 4 gm Escitalopram Oxalate (Escitalopram Oxalate 20 Mg Tab) 20 mg PO DAILY [facility] Stop: 02/20/25 11:59 Last Admin: 01/23/25 08:44 Dose: 20 mg Gabapentin (Gabapentin 300 Mg Cap) 300 mg PO TID [facility] Stop: 02/21/25 13:59 Last Admin: 01/23/25 13:01 Dose: 300 mg Hydroxyzine HCl (Hydroxyzine Hcl 25 Mg Tab) 50 mg PO HSZ PRN PRN Reason: Insomnia Stop: 02/20/25 09:02 Last Admin: 01/22/25 21:54 Dose: 50 mg Hydroxyzine HCl (Hydroxyzine Hcl 25 Mg Tab) 25 mg PO Q4H PRN PRN Reason: Anxiety Stop: 02/20/25 09:02 Ibuprofen (Ibuprofen 200 Mg Tab) 400 mg PO Q4H PRN PRN Reason: Joint pain Stop: 02/20/25 11:39 Lidocaine (Lidocaine 5% 1 Patch) 1 patch TD QAM [facility] Stop: 02/21/25 10:29 Last Admin: 01/23/25 10:17 Dose: 1 patch Magnesium Hydroxide (Magnesium Hydroxide Susp 30 Ml Udc) 30 ml PO DAILY PRN PRN Reason: Constipation Stop: 02/20/25 09:02 Miscellaneous (Remove Nicoderm Patch) 1 each N/A DAILY@0859 [facility] Stop: 02/21/25 08:58 Last Admin: 01/23/25 08:51 Dose: 1 each Miscellaneous (Remove Lidoderm Patch) 1 each N/A DAILY@2100 [facility] Stop: 02/21/25 20:59 Last Admin: 01/22/25 21:11 Dose: 1 each Multivitamins/Minerals (Cerovite Adv Formula Tab) 1 tab PO QAM KALA Stop: 02/20/25 11:44 Last Admin: 01/23/25 08:43 Dose: 1 tab Nicotine (Nicotine 21 Mg/24 Hr Tdsy) 1 patch TD QAM KALA Stop: 02/20/25 09:14 Last Admin: 01/23/25 10:17 Dose: 1 patch Nicotine Polacrilex (Nicotine Polacrilex 2 Mg Gum) 1 piece MT PRN PRN PRN Reason: Nicotine Withdrawal Symptoms Stop: 02/20/25 09:00 Sodium Chloride (Sodium Chloride 0.65% Na Soln 45 Ml ([place])) 1 - 2 sprays NA PRN PRN PRN Reason: Nasal Dryness/Congestion Stop: 02/20/25 09:02 Vitamin D (Cholecalciferol 125 Mcg (5,000 Units) Tab) 125 mcg PO QAM KALA Stop: 02/21/25 10:29 Last Admin: 01/23/25 08:43 Dose: 125 mcg Mental Health & Subst Abuse Tx Psychiatrist Name of Psychiatrist: [facility]Dr[facility] Connor Psychiatrist's Date Of Appointment With Psychiatric Provider: 01/28 Time of Appointment with Psychiatrist: 10:30 Psychiatric Appointment Comment: [address], [place] [id number] Therapist Name of Therapist: [employer] [facility] ([facility]) Date of Therapist Appointment: 01/27/2025 [facility] Post Discharge Appointments Primary Care Physician Name Of Family Doctor/PCP: Dr. Patric York - [facility] PCP Primary Care Date of Future Appointment with PCP: 01/27 Time of Appointment with PCP: 11am Provider Appointment Comment: Appt on 01/25 rescheduled
[2025-01-24 12:58] LABS: Marijuana Quant, GCMS Urine 1005 ng/mL (<5)
--- NOTE | 2025-01-24 15:37 | Psychiatric Progress Note ---
Date of Service January 24, 2025 Impression / Recommendations Patricia BYRD is a 29-year-old man who currently lives in [place] alone, has a history of anxiety, depression, [id number]-Wyvlq, and was admitted on 01/21/25 08:32 on a 201 voluntary commitment for SI and HI. Diagnostically consistent with major depressive disorder with suicidal ideation, generalized anxiety disorder with panic attacks, Mefytdn-Nxlva-Fxdqi disease, and unspecified eating disorder, self-harm behaviors and possible borderline personality disorder. Nutritional deficiencies on the differential as these can contribute to anxiety symptoms, particularly given long-term vegan diet and history of binging, no evidence for thiamine deficiency or Wernicke's encephalopathy. A: Patient continues to have sleep maintenance dysfunction however overall presents an improved mood, brighter affect, less racing thoughts. Patient was counseled about sleep hygiene techniques and was encouraged to incorporate them while in the hospital. He is future oriented and looking towards plans after discharge. Overall, I spent a total of 40 minutes on this case including meeting with the patient, reviewing the chart, nursing report, multidisciplinary team meeting, orders, and documentation. (1) MDD (major depressive disorder), recurrent episode, severe: (2) Generalized anxiety disorder with panic attacks: (3) Laceration of multiple sites: (4) Ryhvldh-Jwvsg-Qgzwb disease: (5) Eating disorder, unspecified: (6) Cluster B personality disorder: (7) Alcohol abuse: Plan 01/24/2025: Continue medications and treatment plan. 01/23/2025: Continue medications and treatment plan 01/22/2025: -Increase gabapentin to 300mg TID 01/21/2025: The patient was admitted to the [facility] ([facility] mental health unit) on q15 min checks (behavioral with suicide precautions) for safety. The patient will participate in group, recreational, and milieu therapies and will be offered additional individual and family sessions as clinically appropriate. -continue abilify 5mg HS -increase lexapro to 20mg daily -fasting lipid panel, HBA1c, Vit D and Vit B12 for tomorrow AM -start gabapentin 100mg TID -start multivitamin -furnace maintenance consult -lidocaine patch -Voltaren gel -Advil -PHQ-9, ALEJANDRO-7, Desmond BPD, MARKEL questionnaire Inventory Assets Strengths: supportive relationships, willing to get treatment Needs: safety and stabilization, medication adjustment, additional coping skills, increased outpatient services Suicide Risk Level Suicide Risk Level: Moderate (q15 min suicide checks) (worsened depression, anxiety with panic attacks and SI prior to admission but mood improving, feels safe in the hospital and feels able to ask for support) Risk Factors Assessment Male: Yes : Yes Do You Have Access To A Gun?: Yes Health Problems: Yes Mental Health Diagnoses: Yes Substance Use Disorders: No Previous Attempt: No Family History of Suicide: No Previous Psychiatric Hospitalization: No Hopelessness: Yes Protective Factors Assessment Employed: No Stable Relationships: Yes Supportive Family: Yes (mother) Good Rapport with Provider: Yes Interval History Identifying Information GISEL BYRD is a 29-year-old man who currently lives in [place] alone, has a history of anxiety, depression, [id number]-Hwvbp, and was admitted on 01/21/25 08:32 on a 201 voluntary commitment for SI and HI. Chief Complaint Anxiety Review of Systems Sleep Information Total Hours of Sleep: 5.5 Meal Information Percent Meal Consumed - Breakfast: 100 Percent Meal Consumed - Lunch: 100 Percent Meal Consumed - Dinner: 100 Subjective Subjective Patient was seen & assessed and interval progress reviewed with treatment team nursing and social work Sister and boyfriend visited and it went well. Has been interactive with peers. Received Vistaril as needed for sleep. Overnight had some sleep awakenings. Reports improved control of pain. Endorses less racing thoughts. Has continued trouble falling asleep. Denies SI. Interested in AA support meeting with his sister when grandmother. Physical Exam Mental Examination Appearance: Well Groomed Eye Contact: Maintains Eye Contact Motor Behavior: Unsteady and Tremulous Speech: Normal Mood: Calm Affect: Nervous Thought Process: Intact Hallucinations: None Insight: Poor Judgement: Fair Vital Signs (Past 24 Hours) Last Vital Signs Temp 36.4 C L 01/24/25 06:33 Pulse 70 01/24/25 06:33 Resp 16 01/24/25 06:33 BP 104/62 01/24/25 06:33 Pulse Ox 99 01/21/25 10:04 O2 Del Method Room Air 01/21/25 10:04 Results & Data ([facility]) Laboratory Results Laboratory Results - last 24 hr 01/21/25 04:45 U Marijuana THC Carboxy 1005 H Drug Screen Comment SEE NOTE Current Inpatient Medications Current Inpatient Medications: Current Inpatient Medications Acetaminophen (Acetaminophen 325 Mg Tab) 650 mg PO Q4H PRN PRN Reason: Headache or Minor Fever Stop: 02/20/25 09:02 Al Hydrox/Mg Hydrox/Simethicone (Aluminum/Magnesium Susp 30 Ml Udc) 30 ml PO Q4H PRN PRN Reason: GI Upset Stop: 02/20/25 09:02 Aripiprazole (Aripiprazole 5 Mg Tab) 5 mg PO DAILY COUNTS INCLUDE 234 BEDS AT THE [facility] Stop: 02/20/25 11:59 Last Admin: 01/24/25 08:55 Dose: 5 mg Bismuth Subsalicylate (Bismuth Subsalicylate 262 Mg Chew) 2 tab PO Q30M PRN PRN Reason: Loose Stool/Diarrhea Stop: 02/20/25 09:02 Diclofenac Sodium (Diclofenac Sod 1% Gel 100 Gm Tube) 4 gm EXT BID COUNTS INCLUDE 234 BEDS AT THE [facility]; Protocol Stop: 02/20/25 11:44 Last Admin: 01/24/25 14:28 Dose: 4 gm Escitalopram Oxalate (Escitalopram Oxalate 20 Mg Tab) 20 mg PO DAILY COUNTS INCLUDE 234 BEDS AT THE [facility] Stop: 02/20/25 11:59 Last Admin: 01/24/25 08:56 Dose: 20 mg Gabapentin (Gabapentin 300 Mg Cap) 300 mg PO TID COUNTS INCLUDE 234 BEDS AT THE [facility] Stop: 02/21/25 13:59 Last Admin: 01/24/25 14:30 Dose: 300 mg Hydroxyzine HCl (Hydroxyzine Hcl 25 Mg Tab) 50 mg PO HSZ PRN PRN Reason: Insomnia Stop: 02/20/25 09:02 Last Admin: 01/22/25 21:54 Dose: 50 mg Hydroxyzine HCl (Hydroxyzine Hcl 25 Mg Tab) 25 mg PO Q4H PRN PRN Reason: Anxiety Stop: 02/20/25 09:02 Ibuprofen (Ibuprofen 200 Mg Tab) 400 mg PO Q4H PRN PRN Reason: Joint pain Stop: 02/20/25 11:39 Lidocaine (Lidocaine 5% 1 Patch) 1 patch TD QAM COUNTS INCLUDE 234 BEDS AT THE [facility] Stop: 02/21/25 10:29 Last Admin: 01/24/25 14:29 Dose: 1 patch Magnesium Hydroxide (Magnesium Hydroxide Susp 30 Ml Udc) 30 ml PO DAILY PRN PRN Reason: Constipation Stop: 02/20/25 09:02 Miscellaneous (Remove Nicoderm Patch) 1 each N/A DAILY@0859 COUNTS INCLUDE 234 BEDS AT THE [facility] Stop: 02/21/25 08:58 Last Admin: 01/24/25 08:56 Dose: 1 each Miscellaneous (Remove Lidoderm Patch) 1 each N/A DAILY@2100 COUNTS INCLUDE 234 BEDS AT THE [facility] Stop: 02/21/25 20:59 Last Admin: 01/23/25 21:57 Dose: 1 each Multivitamins/Minerals (Cerovite Adv Formula Tab) 1 tab PO QAM KALA Stop: 02/20/25 11:44 Last Admin: 01/24/25 08:55 Dose: 1 tab Nicotine (Nicotine 21 Mg/24 Hr Tdsy) 1 patch TD QAM KALA Stop: 02/20/25 09:14 Last Admin: 01/24/25 14:29 Dose: 1 patch Nicotine Polacrilex (Nicotine Polacrilex 2 Mg Gum) 1 piece MT PRN PRN PRN Reason: Nicotine Withdrawal Symptoms Stop: 02/20/25 09:00 Sodium Chloride (Sodium Chloride 0.65% Na Soln 45 Ml ([place])) 1 - 2 sprays NA PRN PRN PRN Reason: Nasal Dryness/Congestion Stop: 02/20/25 09:02 Vitamin D (Cholecalciferol 125 Mcg (5,000 Units) Tab) 125 mcg PO QAM KALA Stop: 02/21/25 10:29 Last Admin: 01/24/25 08:56 Dose: 125 mcg Mental Health & Subst Abuse Tx Psychiatrist Name of Psychiatrist: [facility] Connor Psychiatrist's Date Of Appointment With Psychiatric Provider: 01/28 Time of Appointment with Psychiatrist: 10:30 Psychiatric Appointment Comment: [facility] [place] [address] Therapist Name of Therapist: [employer] [facility] Date of Therapist Appointment: 01/27/2025 Donor Recruiter Name of Donor Recruiter: None Post Discharge Appointments Primary Care Physician Name Of Family Doctor/PCP: Dr. Patric York - [facility] PCP Primary Care Date of Future Appointment with PCP: 01/27 Time of Appointment with PCP: 11am Provider Appointment Comment: Appt on 01/25 rescheduled
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
== END 2025-01-25 10:10 | disposition home or self-care (01) | DRG 885 ==
LOC: ED 04:26 → 3S 08:32 → SUATTDRO 08:32 → 3S 08:49

== ENCOUNTER 2025-06-10 02:39 | Inpatient (IN) ==
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
[2025-06-10 03:17] LABS: Hematocrit (blood only) 40.7 % (42.0-52.0); Hemoglobin 14.2 g/dl (14.0-18.0); Immature Granulocytes # (auto) 0.01 K/uL (0.01-0.20); Immature Granulocytes % (auto) 0.1 %; Mean Corpuscular Hemoglobin 30.1 pg (25.0-34.0); Mean Corpuscular Volume 86.4 fL (80.0-100.0); Platelet Count 231 K/uL (130-400); RDW Standard Deviation 37.3 fL (36.4-46.3); Red Blood Count 4.71 M/uL (4.70-6.10); White Blood Count 7.47 K/ul (4.8-10.8)
[2025-06-10 03:30] LABS: Appearance Urine Clear (Clear); Glucose Urine UA Negative (Negative)
[2025-06-10 03:34] LABS: Alanine Aminotransferase 33 U/L (7-52); Albumin Globulin Ratio 1.5 (0.9-2); Alkaline Phosphatase 74 U/L (34-104); Anion Gap 9 (3-11); Bilirubin,Total 0.4 mg/dl (0.2-1.0); Blood Urea Nitrogen 16 mg/dl (6-23); Calcium 9.2 mg/dl (8.6-10.3); Carbon Dioxide 24 mmol/L (21-32); Chloride 105 mmol/L (98-107); Globulin 3.0 gm/dl (2.5-4.0); Glucose 86 mg/dl (70-99(Fasting)); Potassium 4.5 mmol/L (3.5-5.1); Sodium 138 mmol/L (136-145); Total Protein 7.6 gm/dl (6.0-8.3)
[2025-06-10 04:05] LABS: Thyroid Stimulating Hormone 1.857 uIu/ml (0.300-4.500)
[2025-06-10 04:27] LABS: Amphetamines+Metham, Urine Neg (Neg); MDMA (Ecstacy), Urine Neg (Neg); Marijuana, Urine Pos (Neg)
[2025-06-10 04:27] LABS: Acetaminophen < 3 ug/ml (10-30); Salicylate < 3.0 mg/dl (3.0-30)
[2025-06-10] MEDS: LORazepam 1 MG TAB SL PRN (07:46)
--- NOTE | 2025-06-10 10:00 | Emergency Department Note ---
ED Visit Note Accepted by [address] [place] [address]. .
[2025-06-10] MEDS ORDERED: BISMUTH SUBSALICYLATE 262 MG CHEW PO PRN (11:57)
[2025-06-10] MEDS ORDERED: ALUMINUM/MAGNESIUM SUSP 30 ML UDC PO PRN (11:57)
[2025-06-10] MEDS ORDERED: ACETAMINOPHEN 325 MG TAB PO PRN (11:57)
[2025-06-10] MEDS ORDERED: SODIUM CHLORIDE 0.65% NA SOLN 45 ML (OCEAN) PRN (11:57)
[2025-06-10] MEDS ORDERED: MAGNESIUM HYDROXIDE SUSP 30 ML UDC PO PRN (11:57)
[2025-06-10] MEDS ORDERED: NICOTINE POLACRILEX 2 MG GUM MT PRN (12:07)
[2025-06-10] MEDS: NICOTINE 14 MG/24 HR PATCH TD SCH (15:30)
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
[2025-06-10] MEDS: GABAPENTIN 300 MG CAP PO SCH (21:25)
[2025-06-11] MEDS: CYANOCOBALAMIN (B-12) 100 MCG TABLET PO SCH (08:49)
[2025-06-11] MEDS: ARIPiprazole 5 MG TAB PO SCH (08:49)
[2025-06-11] MEDS: ESCITALOPRAM OXALATE 20 MG TAB PO SCH (08:49)
[2025-06-11] MEDS: CHOLECALCIFEROL 125 MCG (5,000 UNITS) TAB PO SCH (08:49)
[2025-06-11 09:22] LABS: Cholesterol 143.0 mg/dl (0-200); HDL Cholesterol 59.0 mg/dl; Triglycerides 71.0 mg/dl (0-150)
--- NOTE | 2025-06-11 09:23 | Psychiatric Progress Note ---
Date of Service June 11, 2025 Impression / Recommendations Patricia BYRD is a 29-year-old man who currently lives in [facility] alone, has a history of MDD (major depressive disorder), Generalized anxiety disorder with panic attacks, unspecified eating disorder, Cluster B personality disorder and alcohol use as well as Czmdsnj-Xhstm-Ctymh disease and was admitted on 06/10/25 11:35 on a 302 involuntary commitment for suicidal statements. Diagnostically consistent with unspecified depression with differential including alcohol-induced depression vs MDD vs borderline personality disorder vs adjustment disorder with depressed mood in the context of conflict with his father and increased alcohol use. A: Mood improving, less guarded today and has been processing events leading to hospitalization. He declines naltrexone at this point but understands it is an option in the future especially if he continues to have episode of binge drinking. Reviewed labwork, HbA1c, fasting lipid panel normal. Vit D has been increasing with supplementation though still slightly low. He had a support meeting with his sister and grandmother and completed his safety plan. Overall, I spent a total of 35 minutes on this case including meeting with the patient, reviewing the chart, nursing report, multidisciplinary team meeting, orders, and documentation. (1) Depression: (2) Insomnia: (3) Alcohol use disorder: (4) Cluster B personality disorder: (5) Eating disorder, unspecified: (6) Generalized anxiety disorder with panic attacks: (7) Nvbcoqi-Lpplm-Tzevn disease: (8) Deliberate self-cutting: Plan 06/11/2025: -Continue current medications and tx plan 06/10/2025: The patient was admitted to the [facility] ([facility] mental health unit) on q15 min checks (behavioral with suicide precautions) for safety. The patient will participate in group, recreational, and milieu therapies and will be offered additional individual and family sessions as clinically appropriate. -Continue prior to admission medications: * Vit D 125 mcg daily * Abilify 5mg daily * Lexapro 20mg daily * Gabapentin 300mg TID -Start trazodone 50mg HS po for sleep -Start B12 100mcg daily given vegan diet -Consider use of naltrexone for alcohol use and off-label for self-harm and pain -Fasting lipid panel, HbA1c, VIt D tomorrow AM Inventory Assets Strengths: supportive relationships, good outpatient supports Needs: safety and stabilization, medication adjustment, additional coping skills, increased outpatient services Suicide Risk Level Suicide Risk Level: Moderate (q15 min suicide checks) (possible recent statements of SI but in context of alcohol and family conflict, currently denies SI and feels able to ask for support and feels safe in the hospital) Risk Factors Assessment Male: Yes : Yes Do You Have Access To A Gun?: No (had one but removed by his grandmother prior to admission) Health Problems: Yes Mental Health Diagnoses: Yes Substance Use Disorders: Yes Previous Attempt: No Family History of Suicide: No Previous Psychiatric Hospitalization: Yes Hopelessness: No Protective Factors Assessment : No Responsible for Young Children: No Employed: No Supportive Family: Yes Good Rapport with Provider: Yes Interval History Identifying Information GISEL BYRD is a 29-year-old man who currently lives in [facility] alone, has a history of MDD (major depressive disorder), Generalized anxiety disorder with panic attacks, unspecified eating disorder, Cluster B personality disorder and alcohol use as well as Qudpaqg-Riopu-Klusx disease and was admitted on 06/10/25 11:35 on a 302 involuntary commitment for suicidal statements. Chief Complaint "Good". Review of Systems Sleep Information Total Hours of Sleep: 6.75 Meal Information Percent Meal Consumed - Lunch: 100 Percent Meal Consumed - Dinner: 100 Subjective Subjective Patient was seen & assessed and interval progress reviewed with treatment team. His sister visited last evening. Slept well last night with trazodone, denies any side effects. Discussed option to trial naltrexone to help with alcohol use, he reflects that he doesn't drink often but can struggle to not overdrink when he does drink. However, he doesn't want to take a daily pill given his view of these episodes being infrequent. He continues to deny SI. Reviewed his frustrations with his 302 commitment, offered resources he could utilize to file complaint or look into his rights, he declines. We processed his outpatient supports and his engagement with these and his motivation to start at [facility]. Physical Exam Psychiatric Orientation: alert and oriented x 3 Apperance: appropriately dressed and appropriately groomed Eye Contact: good eye contact Motor Behavior: no abnormal motor movements Speech: normal rate/rhythm/volume of speech Affect: + constricted affect (but with some smiles) Mood: + anxious mood Thought Process: goal directed thought process Thought Content: reality based without delusions Suicidal Thoughts: denies suicidal thoughts, denies suicidal plan and denies suicidal intent Homicidal Thoughts: denies homicidal thoughts Hallucinations: no auditory hallucinations and no visual hallucinations Cognition: recent memory grossly intact, remote memory grossly intact, attention grossly intact and language grossly intact Estimated Intelligence: consistent with education level Insight: + limited insight Judgment: + fair judgement Vital Signs (Past 24 Hours) Last Vital Signs Temp 36.3 C L 06/11/25 06:27 Pulse 54 L 06/11/25 06:28 Resp 18 06/11/25 06:27 BP 116/72 06/11/25 06:28 Pulse Ox 100 06/10/25 12:13 O2 Del Method Room Air 06/10/25 12:13 Results & Data ([facility]) Laboratory Results Laboratory Results - last 24 hr 06/11/25 08:39 Estimat Average Glucose Pending Hemoglobin A1c Pending Triglycerides Pending Cholesterol Pending VLDL Cholesterol, Calc Pending HDL Cholesterol Pending Cholesterol/HDL Ratio Pending 25-OH Vitamin D Total Pending Current Inpatient Medications Current Inpatient Medications: Current Inpatient Medications Acetaminophen (Acetaminophen 325 Mg Tab) 650 mg PO Q4H PRN PRN Reason: Headache or Minor Fever Stop: 07/10/25 11:56 Al Hydrox/Mg Hydrox/Simethicone (Aluminum/Magnesium Susp 30 Ml Udc) 30 ml PO Q4H PRN PRN Reason: GI Upset Stop: 07/10/25 11:56 Aripiprazole (Aripiprazole 5 Mg Tab) 5 mg PO DAILY KALA Stop: 07/11/25 08:59 Last Admin: 06/11/25 08:49 Dose: 5 mg Bismuth Subsalicylate (Bismuth Subsalicylate 262 Mg Chew) 2 tab PO Q30M PRN PRN Reason: Loose Stool/Diarrhea Stop: 07/10/25 11:56 Cyanocobalamin (Cyanocobalamin (B-12) 100 Mcg Tablet) 100 mcg PO QAM KALA Stop: 07/11/25 08:59 Last Admin: 06/11/25 08:49 Dose: 100 mcg Escitalopram Oxalate (Escitalopram Oxalate 20 Mg Tab) 20 mg PO DAILY KALA Stop: 07/11/25 08:59 Last Admin: 06/11/25 08:49 Dose: 20 mg Gabapentin (Gabapentin 300 Mg Cap) 300 mg PO TID KALA Stop: 07/10/25 20:59 Last Admin: 06/11/25 08:49 Dose: 300 mg Hydroxyzine HCl (Hydroxyzine Hcl 25 Mg Tab) 50 mg PO HSZ PRN PRN Reason: Insomnia Stop: 07/10/25 11:56 Last Admin: 06/10/25 21:29 Dose: 50 mg Hydroxyzine HCl (Hydroxyzine Hcl 25 Mg Tab) 25 mg PO Q4H PRN PRN Reason: Anxiety Stop: 07/10/25 11:56 Magnesium Hydroxide (Magnesium Hydroxide Susp 30 Ml Udc) 30 ml PO DAILY PRN PRN Reason: Constipation Stop: 07/10/25 11:56 Miscellaneous (Remove Nicoderm Patch) 1 each N/A DAILY@0859 [facility] Stop: 07/11/25 08:58 Nicotine (Nicotine 14 Mg/24 Hr Patch) 1 patch TD [facility] Stop: 07/11/25 08:59 Last Admin: 06/10/25 15:30 Dose: 1 patch Nicotine Polacrilex (Nicotine Polacrilex 2 Mg Gum) 1 piece MT Q2H PRN PRN Reason: cessation Stop: 07/10/25 12:06 Sodium Chloride (Sodium Chloride 0.65% Na Soln 45 Ml (Love)) 1 - 2 sprays NA PRN PRN PRN Reason: Nasal Dryness/Congestion Stop: 07/10/25 11:56 Trazodone HCl (Trazodone Hcl 50 Mg Tab) 50 mg PO [facility] Stop: 07/10/25 21:59 Last Admin: 06/10/25 21:25 Dose: 50 mg Vitamin D (Cholecalciferol 125 Mcg (5,000 Units) Tab) 125 mcg PO [facility] Stop: 07/11/25 08:59 Last Admin: 06/11/25 08:49 Dose: 125 mcg Mental Health & Subst Abuse Tx Therapist Name of Therapist: Crystal PorterAerosol Supervisor Name of Casino Assistant Manager: AMALIA Wooten
[2025-06-11] MEDS: REMOVE NICODERM PATCH SCH (09:38)
[2025-06-11 10:03] LABS: Hemoglobin A1C 5.0 % (4.5-5.6)
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
[2025-06-12 09:53] LABS: Marijuana Quant, GCMS Urine 306 ng/mL (<5)
== END 2025-06-12 11:05 | disposition home or self-care (01) | DRG 881 ==
LOC: ED 02:39 → 3S 11:35